=== PATIENT | female | born 1970 | race Asian ===

== ENCOUNTER 2018-09-13 19:37 | Emergency (ER) | payer OTHER ==
--- NOTE | 2018-09-13 19:52 | ER Report ---
History and Physical Time Seen By MD: 19:52 HPI/ROS CHIEF COMPLAINT: Abdominal pain and UTI symptoms HISTORY OF PRESENT ILLNESS: This is a 47-year-old female who presents to the emergency department for UTI symptoms and lower abdominal pain. The patient states that since March, she has had multiple UTIs, with lower abdominal pain, has been on multiple antibiotics. Has seen her primary care provider at the [facility], was seen and evaluated today, they've collected a urine recently and cultured the urine as well, did come back as UTI, started on Keflex and metronidazole. Patient states that since then she feels that her lower abdo gloria pain and back pain has started to increase, she also states that she recently had her menstrual cycle, finished but now she is bleeding again, bright red blood. Patient feels shaky, "I just don't feel right". She decided to come in for further evaluation. No documented fevers, she does have intermittent chills. No nausea at this time. REVIEW OF SYSTEMS: Respiratory: No cough, no dyspnea. Cardiovascular: No chest pain, no palpitations. Gastrointestinal: As above. Genitourinary: As above. Musculoskeletal: As above. Allergies: Coded Allergies: metronidazole (Verified Allergy, Intermediate, Rash, 09/13/18) Home Meds Active Scripts Clindamycin Hcl (CLINDAMYCIN HCL) 300 Mg Capsule, 300 MG PO BID, #14 CAPSULE 0 Refills Prov:CYNTHIA PATRICK E[facility]rain [facility]- 09/13/18 Reported Medications Cephalexin 500 Mg Tab (KEFLEX 500 MG TAB) 500 Mg Tablet, 500 MG PO TID, #28 TAB 09/13/18 Metronidazole (FLAGYL) 500 Mg Tablet, 500 MG PO BID, TAB 09/13/18 Past Medical/Surgical History Patient has a past medical and surgical history of urinary tract infections. Reviewed Nurses Notes: Yes Constitutional Vital Sign - Last 24 Hours 09/13/18 09/13/18 09/13/18 09/13/18 19:51 19:52 20:00 20:07 Temp 98.5 Pulse 84 82 Resp 14 B/P (MAP) 127/77 (94) 127/77 126/85 (99) Pulse Ox 94 95 O2 Delivery Room Air 09/13/18 09/13/18 09/13/18 09/13/18 20:37 21:24 21:30 21:35 Pulse 75 86 B/P (MAP) 108/71 (83) 107/54 (71) Pulse Ox 96 94 09/13/18 09/13/18 22:00 22:05 Pulse 79 B/P (MAP) 95/62 (73) Pulse Ox 93 Physical Exam General Appearance: The patient is alert, has no immediate need for airway protection and no current signs of toxicity. Eyes: Pupils equal and round no injection. Respiratory: Chest is non tender, lungs are clear to auscultation. Cardiac: regular rate and rhythm. Gastrointestinal: Abdomen is soft and mild tenderness to the lower abdomen, midline. no masses, hyperactive bowel sounds.. Musculoskeletal: Neck: Neck is supple and non tender. Extremities have full range of motion and are non tender. Skin: No rashes or lesions. DIFFERENTIAL DIAGNOSIS: After history and physical exam differential diagnosis was considered for abdominal pain in a female including but not limited to ovarian cyst, pelvic inflammatory disease, ovarian torsion, urinary tract infection, and appendicitis. Medical Decision Making Data Points Result Diagram: 09/13/18203109/13/182031 Laboratory Hematology Test 09/13/18 19:47 09/13/18 20:32 Urine Color Lyndsey Urine Clarity Slightly-cloudy Urine pH 5.0 pH (4.8-9.5) Urine Specific Hiram 1.023 Urine Protein Negative mg/dL (NEGATIVE) Urine Glucose (UA) Negative mg/dL (NEGATIVE) Urine Ketones Trace mg/dL (NEGATIVE) Urine Blood Negative (NEGATIVE) Urine Nitrite Negative (NEGATIVE) Urine Bilirubin Negative (NEGATIVE) Urine Urobilinogen Negative mg/dL (0.2-1.9) Urine Leukocyte Esterase Small (NEGATIVE) Urine RBC 15 /HPF (0-2/HPF) Urine WBC 4 /HPF (0-5/HPF) Urine Squamous Epithelial Cells Many /LPF (</=FEW) Urine Bacteria Negative /HPF (NONE-FEW) Urine Mucus Few /HPF (NONE-FEW) Red Blood Count 3.94 M/uL (4.17-5.56) Mean Corpuscular Volume 75.1 fL (80.0-96.0) Mean Corpuscular Hemoglobin 23.6 pg (26.0-33.0) Mean Corpuscular Hemoglobin Concent 31.5 g/dL (32.0-36.0) Red Cell Distribution Width 18.4 % (11.5-14.5) Mean Platelet Volume 7.5 fL (7.2-11.1) Neutrophils (%) (Auto) 52.7 % (39.4-72.5) Lymphocytes (%) (Auto) 30.6 % (17.6-49.6) Monocytes (%) (Auto) 12.6 % (4.1-12.4) Eosinophils (%) (Auto) 3.2 % (0.4-6.7) Basophils (%) (Auto) 0.9 % (0.3-1.4) Nucleated RBC Relative Count (auto) 0.0 /100WBC Neutrophils # (Auto) 2.3 K/uL (2.0-7.4) Lymphocytes # (Auto) 1.3 K/uL (1.3-3.6) Monocytes # (Auto) 0.5 K/uL (0.3-1.0) Eosinophils # (Auto) 0.1 K/uL (0.0-0.5) Basophils # (Auto) 0.0 K/uL (0.0-0.1) Nucleated RBC Absolute Count (auto) 0.00 K/uL Peripheral Blood Smear Y/N Sodium Level 139 mmol/L (137-145) Potassium Level 3.9 mmol/L (3.5-5.0) Chloride Level 105 mmol/L (98-107) Carbon Dioxide Level 26 mmol/L (22-31) Blood Urea Nitrogen 12 mg/dl (7-18) Creatinine 0.80 mg/dl (0.52-1.04) Glomerular Filtration Rate Calc > 60.0 Random Glucose 88 mg/dl (75-110) Calcium Level 9.2 mg/dl (8.4-10.2) Total Bilirubin 0.2 mg/dl (0.2-1.3) Aspartate Amino Transf (AST/SGOT) 35 U/L (0-35) Alanine Aminotransferase (ALT/SGPT) 37 U/L (0-56) Alkaline Phosphatase 53 U/L (0-126) Total Protein 7.2 g/dl (6.3-8.2) Albumin 4.0 g/dl (3.5-5.0) Lipase 80 U/L (23-300) Human Chorionic Gonadotropin, Qual Negative (NEGATIVE) Chemistry Test 09/13/18 19:47 09/13/18 20:32 Urine Color Lyndsey Urine Clarity Slightly-cloudy Urine pH 5.0 pH (4.8-9.5) Urine Specific Hiram 1.023 Urine Protein Negative mg/dL (NEGATIVE) Urine Glucose (UA) Negative mg/dL (NEGATIVE) Urine Ketones Trace mg/dL (NEGATIVE) Urine Blood Negative (NEGATIVE) Urine Nitrite Negative (NEGATIVE) Urine Bilirubin Negative (NEGATIVE) Urine Urobilinogen Negative mg/dL (0.2-1.9) Urine Leukocyte Esterase Small (NEGATIVE) Urine RBC 15 /HPF (0-2/HPF) Urine WBC 4 /HPF (0-5/HPF) Urine Squamous Epithelial Cells Many /LPF (</=FEW) Urine Bacteria Negative /HPF (NONE-FEW) Urine Mucus Few /HPF (NONE-FEW) White Blood Count 4.3 k/uL (4.5-11.0) Red Blood Count 3.94 M/uL (4.17-5.56) Hemoglobin 9.3 g/dL (12.0-16.0) Hematocrit 29.6 % (34.0-47.0) Mean Corpuscular Volume 75.1 fL (80.0-96.0) Mean Corpuscular Hemoglobin 23.6 pg (26.0-33.0) Mean Corpuscular Hemoglobin Concent 31.5 g/dL (32.0-36.0) Red Cell Distribution Width 18.4 % (11.5-14.5) Platelet Count 339 K/uL (150-450) Mean Platelet Volume 7.5 fL (7.2-11.1) Neutrophils (%) (Auto) 52.7 % (39.4-72.5) Lymphocytes (%) (Auto) 30.6 % (17.6-49.6) Monocytes (%) (Auto) 12.6 % (4.1-12.4) Eosinophils (%) (Auto) 3.2 % (0.4-6.7) Basophils (%) (Auto) 0.9 % (0.3-1.4) Nucleated RBC Relative Count (auto) 0.0 /100WBC Neutrophils # (Auto) 2.3 K/uL (2.0-7.4) Lymphocytes # (Auto) 1.3 K/uL (1.3-3.6) Monocytes # (Auto) 0.5 K/uL (0.3-1.0) Eosinophils # (Auto) 0.1 K/uL (0.0-0.5) Basophils # (Auto) 0.0 K/uL (0.0-0.1) Nucleated RBC Absolute Count (auto) 0.00 K/uL Peripheral Blood Smear Y/N Glomerular Filtration Rate Calc > 60.0 Calcium Level 9.2 mg/dl (8.4-10.2) Total Bilirubin 0.2 mg/dl (0.2-1.3) Aspartate Amino Transf (AST/SGOT) 35 U/L (0-35) Alanine Aminotransferase (ALT/SGPT) 37 U/L (0-56) Alkaline Phosphatase 53 U/L (0-126) Total Protein 7.2 g/dl (6.3-8.2) Albumin 4.0 g/dl (3.5-5.0) Lipase 80 U/L (23-300) Human Chorionic Gonadotropin, Qual Negative (NEGATIVE) Urinalysis Test 09/13/18 19:47 Urine Color Lynsdey Urine Clarity Slightly-cloudy Urine pH 5.0 pH (4.8-9.5) Urine Specific Hiram 1.023 Urine Protein Negative mg/dL (NEGATIVE) Urine Glucose (UA) Negative mg/dL (NEGATIVE) Urine Ketones Trace mg/dL (NEGATIVE) Urine Blood Negative (NEGATIVE) Urine Nitrite Negative (NEGATIVE) Urine Bilirubin Negative (NEGATIVE) Urine Urobilinogen Negative mg/dL (0.2-1.9) Urine Leukocyte Esterase Small (NEGATIVE) Urine RBC 15 /HPF (0-2/HPF) Urine WBC 4 /HPF (0-5/HPF) Urine Squamous Epithelial Cells Many /LPF (</=FEW) Urine Bacteria Negative /HPF (NONE-FEW) Urine Mucus Few /HPF (NONE-FEW) EKG/Imaging Imaging Location: [facility] Patient: Gayle Aviles : 1970 Visit/Account:[id number] Date of Sevice: 09/13/2018 EXAMINATION: CT abdomen and pelvis with contrast COMPARISON: None. HISTORY: Abdomen and back pain. PROCEDURE: Multiplanar contrast enhanced CT of the abdomen and pelvis with 75 mL intravenous Isovue 370. One of the following dose optimization techniques was utilized in the performance of this exam: Automated exposure control; adjustment of the mA and/or kV according to the patient's size; or use of an iterative reconstruction technique. Specific details can be referenced in the facility's radiology CT exam operational policy. FINDINGS: Visualized thorax: Incompletely visualized right breast implant. Otherwise negative. Liver: Small cysts primarily in the right hepatic dome. No suspicious hepatic lesion. Gallbladder and biliary system: Negative Spleen: Negative. Pancreas: Negative. Adrenal glands: Negative. Kidneys and bladder: No renal mass or evidence of an obstructive uropathy. Urinary bladder is unremarkable. Vessels: Within normal limits. Bowel and mesentery: Stomach, small bowel, and appendix are within normal limits. Small to moderate amount of stool predominantly in the right hemicolon. No bowel or mesenteric inflammation. Pelvic organs: Negative. Lymph nodes: No adenopathy. Free air/free fluid: None. Abdominal wall and osseous structures: Negative. IMPRESSION: No findings of active disease in the abdomen or pelvis. Report Dictated By: Uriah Elder MD at 09/13/2018 9:37 PM Report E-Signed By: Uriah Elder MD at 09/13/2018 9:53 PM WSN:[id number] ED Course/Re-evaluation Clinical Indication for ER IV: Hydration, IV Access ED Course The patient was admitted to a room. Obtained. Differential diagnoses were considered. An IV was started. A CBC, CMP were obtained. UA was collected. CBC showing a WBCs 4.3, RBCs 3.9, hemoglobin and hematocrit 9.3 and 29.6, MCV 75.1. Chemistry unremarkable. Negative hCG, urine showing trace ketones contaminated urine, concentrated. A CT of the abdomen and pelvis was negative for any acute intra-abdominal abnormalities. I did review the results with the patient. I did recommend establishing with a primary care provider that would be able to manage her anemia, patient does state that she has a history of anemia. I did tell her this could be mony to the fatigue that she's been experiencing recently. Patient states she'll follow-up with Dr. dominic plaza for further evaluation. I also recommend following up with Dr. Weiss for the heavy menstrual cycles. The patient expressed understanding and was discharged home. Patient did receive a 1 L normal saline bolus, she did decline pain medications. He did recommend that the patient continues taking the Keflex that was prescribed to her by her primary care at this time, she was also prescribed metronidazole, she states she is having a reaction to this, to tell her to stop this and I did send in a prescription for clindamycin. Decision to Disposition Date: Sep 13, 2018 Decision to Disposition Time: 22:18 Depart Departure Latest Vital Signs Vital Signs Date Time Temp Pulse Resp B/P (MAP) Pulse Ox O2 Delivery O2 Flow Rate FiO2 09/13/18 22:05 79 93 09/13/18 22:00 95/62 (73) 09/13/18 19:52 98.5 14 Room Air Impression: Primary Impression: Anemia Additional Impression: UTI (urinary tract infection) Condition: Improved Disposition: HOME OR SELF-CARE Referrals: TIBURCIO VEGAS MD 1 Week KATHARINE WEISS MD New Scripts Clindamycin Hcl (CLINDAMYCIN HCL) 300 Mg Capsule 300 MG PO BID, #14 CAPSULE 0 Refills Prov: CYNTHIA PATRICKP-BC 09/13/18 Patient Instructions: Acute Urinary Retention in Women (ED), Anemia (ED), Bacterial Vaginosis (ED) Additional Instructions: No concerning findings on the CT of your abdomen. Continue taking the Keflex. Stop taking the metronidazole and start taking the Clindamycin for bacterial Vaginosis, not yeast infection. Be sure to drink plenty of water. Get plenty of rest. Establish with Dr. Vegas to have a formal evaluation done of your anemia. I would also recommend following up with Dr. Weiss for recurrent and heavy menstrual cycles. Return to the ED for any other concerns or worsening symptoms. Problem Qualifiers Primary Impression: Anemia Anemia type: unspecified type Qualified Codes: D64.9 - Anemia, unspecified Additional Impression: UTI (urinary tract infection) Urinary tract infection type: site unspecified Hematuria presence: without hematuria Qualified Codes: N39.0 - Urinary tract infection, site not specified CYNTHIA PATRICK PATTERN MAKER-BC Sep 13, 2018 19:52
[2018-09-13] MEDS ORDERED: METR-1 PO (19:55)
[2018-09-13] MEDS ORDERED: CEPH500T7 PO (19:55)
[2018-09-13] MEDS ORDERED: NS(*) 0.9% 1000 ML BAG 1,000 ML IV ONE (20:15)
[2018-09-13 20:44] LABS: PLATELET COUNT, AUTOMATED 339 K/uL (150-450)
[2018-09-13] MEDS ORDERED: IOPAMIDOL 76% 75 ML INFUS BTL 75 ML ONE (21:07)
--- NOTE | 2018-09-13 21:57 | RADIOLOGY IMAGING REPORT ---
FACILITY: [facility] [place] PATIENT NAME: Gayle Aviles : 1970 MR: [id number] V: [id number] EXAM DATE: ORDERING PHYSICIAN: CYNTHIA PATRICK TECHNOLOGIST: Location: [facility] Patient: Gayle Aviles : 1970 Visit/Account:[id number] Date of Sevice: 09/13/2018 EXAMINATION: CT abdomen and pelvis with contrast COMPARISON: None. HISTORY: Abdomen and back pain. PROCEDURE: Multiplanar contrast enhanced CT of the abdomen and pelvis with 75 mL intravenous Isovue 3 70. One of the following dose optimization techniques was utilized in the performance of this exam: A utomated exposure control; adjustment of the mA and/or kV according to the patient's size; or use of an iterative reconstruction technique. Specific details can be referenced in the facility's radiolo gy CT exam operational policy. FINDINGS: Visualized thorax: Incompletely visualized right breast implant. Otherwise negative. Liver: Small cysts primarily in the right hepatic dome. No suspicious hepatic lesion. Gallbladder and biliary system: Negative Spleen: Negative. Pancreas: Negative. Adrenal glands: Negative. Kidneys and bladder: No renal mass or evidence of an obstructive uropathy. Urinary bladder is unrema rkable. Vessels: Within normal limits. Bowel and mesentery: Stomach, small bowel, and appendix are within normal limits. Small to moderate a mount of stool predominantly in the right hemicolon. No bowel or mesenteric inflammation. Pelvic organs: Negative. Lymph nodes: No adenopathy. Free air/free fluid: None. Abdominal wall and osseous structures: Negative. IMPRESSION: No findings of active disease in the abdomen or pelvis. Report Dictated By: Uriah Elder MD at 09/13/2018 9:37 PM Report E-Signed By: Uriah Elder MD at 09/13/2018 9:53 PM WSN:[id number]
[2018-09-13 22:00] VITALS: BP 95/62
[2018-09-13] MEDS ORDERED: CLIN300C99 PO (22:24)
== END 2018-09-13 22:35 | disposition home or self-care (01) ==
LOC: ER 20:17
DX: D64.9 Anemia, unspecified (principal); N39.0 Urinary tract infection, site not specified
CPT/HCPCS: 36415; 81001; 83690; 84703; 85025; 96360; 99284; J7030; Q9967; 74177; 82040; 82247; 82310; 82374; 82435; 82565; 82947; 84075; 84132; 84155; 84295; 84450; 84460; 84520

== ENCOUNTER → 2019-01-03 | Outpatient (CLI) | payer OTHER ==
[~2019-01-03] MED LIST: CEPH500T7 PO; CLIN300C99 PO; METR-1 PO
--- NOTE | 2019-01-03 10:51 | RADIOLOGY IMAGING REPORT ---
FACILITY: [facility] PATIENT NAME: Gayle Aviles : 1970 MR: [id number] V: [id number] EXAM DATE: ORDERING PHYSICIAN: KATHARINE MARTINEZ TECHNOLOGIST: Location: [facility] Patient: Gayle Aviles : 1970 Visit/Account:[id number] Date of Sevice: 01/03/2019 EXAMINATION: Transvaginal pelvic ultrasound with duplex Doppler evaluation 01/03/2019 10:07 AM HISTORY: Pelvic Pain.; LMP: 12/28/2018 COMPARISON STUDIES: CT abdomen and pelvis 09/13/2018 FINDINGS: Uterus: 8.6 x 5.3 x 7.4 cm Myometrium: Heterogeneously hypoechoic solid 3.5 x 2.0 x 3.1 cm fibroid in the anterior uterine body. The posterior aspect of this is in close proximity to the endometrial echo complex, although it is not clearly immediately submucosal in location. Endometrium: 6 mm thickness. No intrinsic focal finding. Cervix: negative Ovaries: right ovary 2.0 x 0.8 x 1.7 cm, left ovary 2.2 x 1.4 x 2.7 cm, just over 1 cm minimally hype rechoic focus within the left ovary is probably an evolving corpus luteum. There is no significant a cute finding in either ovary. Blood flow is documented in each ovary by Doppler ultrasound. Adnexa: negative Free pelvic fluid: none IMPRESSION: 3.5 cm fibroid in the anterior uterine body. Otherwise unremarkable pelvic ultrasound. Report Dictated By: Heber Swann MD at 01/03/2019 10:42 AM Report E-Signed By: Heber Swann MD at 01/03/2019 10:48 AM WSN:[id number]
== END ==
LOC: US 08:20
PROVIDERS: ATTEND Obstetrics & Gynecology
DX: Z02.9 Encounter for administrative examinations, unspecified (principal)